=== PATIENT | female | born 1990 | race African-American/Black ===

== ENCOUNTER 2023-02-10 07:10 | Inpatient (IN) ==
[~2023-02-10 07:10] MED LIST: Buffered Lidocaine 1% SYRIN 1 ml INTRADERM ONE; Lactated Ringers 1000 ml BAG 1,000 ML IV SCH; Nalbuphine 10 MG/ML 1 ML VIAL IV PRN; Ondansetron 4 mg VIAL 2 MG/ML 2 ml VIAL IV PRN; Promethazine INJ(RESTRICTED) 25 MG/ML 1 ml VIAL IV PRN
[2023-02-10] MEDS ORDERED: Morphine 10 MG/ML VIAL (1 ml) IV ONE (07:36)
[2023-02-10] MEDS ORDERED: fentaNYL 100 mcg/2 ml 50 MCG/ML VIAL ONE ×2 (08:22→09:06)
[2023-02-10 08:24] LABS: ABS Lymphocytes 1.3 10^3/uL (1.0-4.8); ABS Monocytes 1.3 10^3/uL (0.0-0.9); ABS Neutrophils 9.6 10^3/uL (1.5-7.6); Eosinophil % 0.3 %; Hematocrit 35.8 % (35-45); Hemoglobin 12.3 g/dL (11.5-14.3); Lymphocyte % 10.5 %; Mean Corpuscular Hemoglobin 28.7 pg (27-33); Mean Corpuscular Hgb Conc 34.4 g/dL (31-36); Mean Corpuscular Volume 83.5 fL (80-97); Platelet Count 190 10^3/uL (150-450); Red Blood Count 4.29 10^6/uL (3.63-4.92); Red Cell Distribution Width 13.7 % (12-17); White Blood Count 12.2 10^3/uL (3.8-11.8)
[2023-02-10 08:47] LABS: Albumin 3.7 g/dL (3.2-5.2); Calcium 9.2 mg/dL (8.6-10.3); Potassium 3.8 mmol/L (3.5-5.0); Total Bilirubin 0.6 mg/dL (0.2-1.0)
[2023-02-10] MEDS ORDERED: ceFAZolin 2 GM in NS PREMIX 2 GM/100 ML BAG IVPB ONE (08:49)
[2023-02-10 08:53] LABS: Albumin/Globulin Ratio 1.3 (1-3); Creatinine, Serum 0.56 mg/dL (0.51-0.95); Globulin 2.9 g/dL (2-4); Total Protein 6.6 g/dL (6.4-8.9); eGFR CKD-EPI 122.7 (>60)
[2023-02-10] MEDS ORDERED: Lidocaine 2% PF 5 ML VIAL ONE (09:06)
[2023-02-10] MEDS ORDERED: Midazolam 2 mg/2 ml VIAL 1 mg/ml 2 ml VIAL (2 mg) ONE (09:06)
[2023-02-10] MEDS ORDERED: Propofol 10 MG/ML 20 ML BTL ONE (09:07)
[2023-02-10] MEDS ORDERED: Methylergonovine 0.2 mg AMPULE 1 ml AMP ONE (09:54)
[2023-02-10] MEDS ORDERED: Oxytocin in LR 20,000 MILLI.UNIT/1,000 ML BAG IV ONE (10:15)
[2023-02-11 07:33] VITALS: BP 114/60
[2023-02-11] MEDS ORDERED: Dibucaine 1% OINT 28.35 GM TUBE PR PRN (09:07)
[2023-02-11] MEDS ORDERED: Glycerin ADULT 2.4 gm SUPP PR PRN (09:07)
[2023-02-11] MEDS ORDERED: Witch Hazel PAD JAR TOPICAL PRN (09:07)
[2023-02-11 09:27] LABS: ABS Basophils 0.1 10^3/uL (0.0-0.1); ABS Eosinophils 0.1 10^3/uL (0.0-0.5); ABS Lymphocytes 3.1 10^3/uL (1.0-4.8); ABS Monocytes 1.1 10^3/uL (0.0-0.9); ABS Neutrophils 9.6 10^3/uL (1.5-7.6); ABS Nucleated RBC 0.01 10^3/ul; Eosinophil % 0.4 %; Hemoglobin 8.6 g/dL (11.5-14.3); Lymphocyte % 22.2 %; Mean Corpuscular Hemoglobin 28.9 pg (27-33); Mean Corpuscular Hgb Conc 34.4 g/dL (31-36); Mean Corpuscular Volume 83.9 fL (80-97); Mean Platelet Volume 8.5 fL (7.5-11.2); Nucleated Red Blood Cells % 0.1 /100 WBC (0.0-0.4); Platelet Count 171 10^3/uL (150-450); Red Blood Count 2.97 10^6/uL (3.63-4.92); Red Cell Distribution Width 13.7 % (12-17); White Blood Count 13.9 10^3/uL (3.8-11.8)
== END 2023-02-11 12:56 | disposition home or self-care (01) | DRG 806 ==
LOC: MCHOBOUT 07:10 → MCHOB 08:34
PROVIDERS: ADMIT Obstetrics & Gynecology; ATTEND Obstetrics & Gynecology